=== PATIENT | female | born 1970 | race African-American/Black ===

== ENCOUNTER 2016-08-05 13:41 | Emergency (ER) | payer BC ==
[~2016-08-05] VITALS: Ht 167.6 cm; Wt 74.0 kg
[~2016-08-05 13:41] MED LIST: AZEL23SP NS; CEFU250S PO; CHLO25TA PO; CYCL-331 PO; DOCU-109 PO; GABA-586 PO; HYDR-2758 PO; HYDR2TAB31 PO; NAPR500T3 PO; POTA10CA PO; SITA1TBM7 PO
--- NOTE | 2016-08-05 14:12 | PHYS DOC ---
General Chief Complaint: Neck Pain Stated Complaint: ABNORMAL EKG Time Seen by MD: 14:06 Source: patient, other (office visit notes from this morning's outpatient visit ) Exam Limitations: no limitations Problems: History of Present Illness Initial Comments Patient is a 46-year-old female with history of diabetes and chronic back and neck pains sent to the emergency department by physician kindergarten teacher assistant Mattie Peter of Dr. Zheng's office with left-sided neck pain to rule out DE. Patient states that she's had left-sided neck discomfort which radiates to her left ear and anterior neck for the past 2 weeks. She says the discomfort is worse when she turns her head to the left and at night. She denies any injury she denies any arm or neck symptoms as well as no chest pain trouble breathing diaphoresis nausea vomiting. She has history of high blood pressure and tachycardia she's been referred to [facility]ology [facility] in the past but she did not follow-up. She does take prednisone as needed for her chronic neck and back pains and says her sugars have been slightly elevated recently from those medications. She is also complaining of hoarseness intermittently but denies sore throat or dysphagia. She's had no workup for her tachycardia in the past, she does have history of thyroid nodules and goiter. The tachycardia has been present for nearly a year according to the patient, and further discussion reveals that she's had heat intolerance mild weight loss and mild loose stools coinciding with the onset of her tachycardia. In the emergency department she has no discomfort while at rest she says her symptoms are only present when moving her neck and primarily rotating her head to the left. Patient has pending referrals to ENT for the hoarseness as well as plastics for lower lip lesion. Emergency department vitals: 98.1, 117, 16, 164/63, 98% RA Timing/Duration: constant (almost a year), other Severity: moderate Modifying Factors: improves with other Associated Symptoms: other Allergies: Coded Allergies: spironolactone (Verified Allergy, Intermediate, Hives, 01/29/16) tramadol (Verified Allergy, Intermediate, Hives, 01/29/16) Past Medical History Medical History: other (hypertension, thyroid nodules, goiter, diabetes, irritable bowel syndrome, chronic back and neck pain, chronic narcotic pain medication, TIA ) Surgical History: appendectomy, cholecystectomy (hysterectomy), other (total hysterectomy, lumbar fusion 2014, unspecified back surgery 2013) Family History Significant Family History: other (patient is unclear, she says her sister has heart issues and may require a defibrillator but is uncertain if she's had myocardial infarction past.) Social History Smoker: non-smoker Alcohol: none Drugs: none Review of Systems Constitutional: denies chills, denies diaphoresis, denies fever, denies malaise , denies weakness EENTM: see HPI, denies eye pain, denies blurred vision, ear pain, denies ear discharge, denies nose pain, denies nose congestion Respiratory: denies cough, denies shortness of breath, denies wheezing Cardiovascular: denies chest pain, denies edema, denies palpitations, denies syncope Gastrointestinal: denies abdominal pain, denies constipation, diarrhea, denies nausea, denies vomiting Genitourinary: denies dysuria, denies frequency, denies hematuria Musculoskeletal: see HPI Psychiatric/Neurological: denies headache, denies numbness, denies paresthesia , denies seizure, denies weakness Hematologic/Lymphatic: denies blood clots, denies easy bleeding, denies easy bruising Physical Exam General Appearance: WD/WN, mild distress Eyes: bilateral eye normal inspection, bilateral eye PERRL, bilateral eye EOMI , bilateral eye other (no obvious exophthalmos noted) Ear, Nose, Throat: hearing grossly normal, normal ENT inspection, normal pharynx Neck: supple (left sided sternocleidomastoid and scalene hypertonicity with tenderness to palpation, mildly decreased head rotation to the left, small left- sided thyroid nodule noted no bony tenderness or lymphadenopathy noted trachea is midline) Respiratory: normal breath sounds, no respiratory distress Cardiovascular: normal peripheral pulses, tachycardia Gastrointestinal: normal bowel sounds, non tender, soft Back: no CVA tenderness, no vertebral tenderness Extremities: normal range of motion, non-tender, normal inspection Neurologic/Psychiatric: valver II-XII nml as tested, no motor/sensory deficits, alert, normal mood/affect, oriented x 3 Skin: normal color, warm/dry Orders, Labs, Meds EKG: Sinus tachycardia 110 bpm no acute ischemic changes noted no STEMI interpreted by me. Chest x-ray PA and lateral: No acute cardiopulmonary process noted, interpreted by me. Labs reassuring TSH is pending. Results discussed with the patient and her questions were answered. She expressed agreement and understanding of the treatment plan. Departure Time of Disposition: 16:23 Disposition: 01 HOME, SELF-CARE Diagnosis: multinodular goiter, torticollis, tachycardia/hype Condition: STABLE Patient Instructions: Thyroid-Stimulating Hormone, Torticollis, Acute Additional Instructions: As discussed, your constellation of symptoms: thyroid nodules, tachycardia, hypertension, heat intolerance, and loose stools may be due in part to hyperthyroidism. Left sided sternocleidomastoid muscle spasm may be resultant from local irritation of thyroid nodule. The thyroid blood test result will be available in 2-3 days. Rest, no strenuous activity. Continue current meds. Follow up with ENT and plastics as already planned. Follow up with Mattie Peter next week for recheck, thyroid test results, further evaluation and treatment. Return to ED with new or changing symptoms. YVONNE LOPEZ DO Aug 05, 2016 14:12
[2016-08-05] MEDS ORDERED: ASPIRIN 81 MG TAB.CHEW PO ONE (14:15)
[2016-08-05 14:35] LABS: BASO % 1 % (0-3); EOS # 0.1 x10^3/uL (0.0-0.7); EOS % 2 % (0-3); HEMATOCRIT 36.9 % (36.0-47.0); HEMOGLOBIN 12.5 g/dL (12.0-15.5); LYMPH # 1.5 x10^3/uL (1.0-4.8); LYMPH % 40 % (24-48); MEAN CORPUSCULAR HEMOGLOBIN 29 pg (25-35); MEAN CORPUSCULAR HGB CONC 34 g/dL (31-37); MEAN CORPUSCULAR VOLUME 84 fL (79-100); MONO # 0.3 x10^3/uL (0.0-1.1); MONO % 7 % (0-9); NEUT # 1.9 x10^3uL (1.8-7.7); NEUT % 50 % (31-73); PLATELET COUNT 234 x10^3/uL (140-400); RED BLOOD COUNT 4.37 x10^6/uL (3.50-5.40); RED CELL DISTRIBUTION WIDTH 14.8 % (11.5-14.5); WHITE BLOOD COUNT 3.8 x10^3/uL (4.0-11.0)
--- NOTE | 2016-08-05 14:42 | RAD ---
Indication: Abnormal EKG. Time of exam 1427 hours. Correlation is made with prior chest from 01/29/2016. FINDINGS: The heart size is normal. The lungs are clear. No pleural effusion or pneumothorax is identified. The pulmonary vascularity is normal. IMPRESSION: No acute abnormality detected.
[2016-08-05] MEDS ORDERED: NITROGLYCERIN OINT 1 GM PACKET. TP ONE (14:45)
--- NOTE | 2016-08-05 14:45 | EKG ---
[address] [address] Test Date: 2016-08-05 Test Time: 13:58:53 Pat Name: RICK LEES Department: Room: Gender: F Employment Law Specialist: : 1970 Requested By: YVONNE LOPEZ Order Number: [id number] Reading MD: Measurements Intervals [place] Rate: 110 P: 42 MO: 120 QRS: 33 QRSD: 84 T: 23 QT: 336 QTc: 460 Interpretive Statements SINUS TACHYCARDIA OTHERWISE NORMAL ECG RI6.01 Unconfirmed report No previous ECG available for comparison
[2016-08-05 14:55] LABS: ALBUMIN 3.9 g/dL (3.4-5.0); CALCIUM 9.5 mg/dL (8.5-10.1); CREATININE 0.6 mg/dL (0.6-1.0); GFR 129.1; MAGNESIUM 1.8 mg/dL (1.8-2.4); POTASSIUM 3.5 mmol/L (3.5-5.1); TOTAL BILIRUBIN 0.3 mg/dL (0.2-1.0); TOTAL PROTEIN 7.9 g/dL (6.4-8.2)
[2016-08-05] MEDS: MORPHINE SULFATE 4 MG/ML DISP.SYRIN. IV/SQ PRN ×2 (15:13→15:57)
[2016-08-05] MEDS ORDERED: IV NORMAL SALINE 1,000ML 1,000 ML IV SCH (16:10)
--- NOTE | 2016-08-05 16:14 | RAD ---
THYROID SONOGRAPHY History: Neck pain and hoarseness. Findings: The longitudinal and AP and transverse dimensions of the right lobe of the thyroid gland are 5.4 cm and 1.9 cm and 2.1 cm respectively. The longitudinal and AP and transverse dimensions of the left lobe are 6.3 cm and 1.7 cm and 2.1 cm respectively. Multiple numerous nodules are seen bilaterally consistent with multinodular goiter. This includes the isthmus which measures 0.3 cm in thickness. Largest nodule on the left side is a cyst measuring 15 mm. Largest nodule on the right side is a complex cystic nodule measuring 19 mm. Multiple echogenic foci with shine down is seen consistent with colloid cysts. IMPRESSION: Enlarged thyroid gland. Multinodular goiter.
[2016-08-05 17:00] VITALS: BP 132/66
== END 2016-08-05 17:15 | disposition home or self-care (01) ==
LOC: ER 13:41
DX: E04.2 Nontoxic multinodular goiter (principal); M43.6 Torticollis; R00.0 Tachycardia, unspecified; E11.9 Type 2 diabetes mellitus without complications; I10 Essential (primary) hypertension; K58.9 Irritable bowel syndrome, unspecified; G89.29 Other chronic pain; Z86.73 Personal history of transient ischemic attack (TIA), and cerebral infarction without residual deficits; Z88.6 Allergy status to analgesic agent; Z88.8 Allergy status to other drugs, medicaments and biological substances
CPT/HCPCS: 36415; 71020; 76536; 80053; 82550; 83735; 83880; 84443; 84484; 85027; 85379; 85610; 85730; 93005; 96361; 96374; 96376; 99285; J2270; J7030

== ENCOUNTER 2016-09-10 01:58 | Observation (INO) | payer OTHER ==
[~2016-09-10] VITALS: Ht 167.6 cm; Wt 76.8 kg
--- NOTE | 2016-09-10 02:06 | PHYS DOC ---
General Chief Complaint: high blood pressure Stated Complaint: HIGH BLOOD PRESSURE Time Seen by MD: 02:05 Source: patient Exam Limitations: no limitations Problems: History of Present Illness Initial Comments Patient is a 46-year-old female with history of diabetes and hypertension who comes to the emergency department complaining of hypertension and jaw pain. Patient states that she's been under a great deal of stress the past several weeks. Her dad was diagnosed with prostate cancer 2 weeks ago and she has been in and out of the hospital and various doctors offices with him trying to get him treated. Patient says that she has history of hypertension in the past she used to take 8 medications to control her blood pressures. She says that she was taken off of her antihypertensive medications as her blood pressures normalized and she hasn't had issues with that since. Patient states that she first felt ill when she awoke yesterday with a mild headache and jaw/neck achiness. Those symptoms smoldered throughout the day until 10 PM last night. She says that she went to product picker some medications for her father and arrived back home about 10 PM at which point she noticed that her jaw symptoms had worsened and she was nauseous. She denies chest pain diaphoresis or difficulty breathing. Patient says that she did take a metoprolol and a 20 mg lisinopril yesterday evening at home as she felt her symptoms were likely from elevated blood pressures. Patient states that has been a while since she's been to her doctor but she follows with Dr Zheng's office. ED vitals: 98.2, 96, 20, 187/120, 98% room air Timing/Duration: 24 hours Severity: moderate Modifying Factors: improves with medication, improves with rest Associated Symptoms: headaches, malaise, nausea/vomiting Allergies: Coded Allergies: spironolactone (Verified Allergy, Intermediate, Hives, 01/29/16) tramadol (Verified Allergy, Intermediate, Hives, 01/29/16) Past Medical History Medical History: other (chronic back pain, diabetes, hypertension, TIA) Surgical History: appendectomy, cholecystectomy, other (hysterectomy, L1 and 2 fusion) Family History Significant Family History: other Social History Smoker: non-smoker Alcohol: none Drugs: none Review of Systems Constitutional: denies chills, denies diaphoresis, denies fever, malaise EENTM: see HPI Respiratory: denies cough, denies shortness of breath, denies wheezing Cardiovascular: denies chest pain, denies palpitations, denies syncope Gastrointestinal: denies abdominal pain, denies diarrhea, nausea, denies vomiting Genitourinary: denies dysuria, denies frequency, denies hematuria Musculoskeletal: see HPI Psychiatric/Neurological: denies headache, denies numbness, denies paresthesia , denies weakness Hematologic/Lymphatic: denies blood clots, denies easy bleeding, denies easy bruising Physical Exam General Appearance: WD/WN, no apparent distress Eyes: bilateral eye normal inspection, bilateral eye PERRL, bilateral eye EOMI Ear, Nose, Throat: hearing grossly normal, normal ENT inspection Neck: non-tender, supple Respiratory: normal breath sounds, no respiratory distress Cardiovascular: normal peripheral pulses, regular rate, rhythm Gastrointestinal: non tender, soft Back: no CVA tenderness, no vertebral tenderness Extremities: non-tender, normal inspection 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 Interpreted by Dr. Lopez. ED workup is reassuring. 0431: I discussed findings with the patient. Upon recheck she states that nearly all of her symptoms have resolved, current blood pressure is 140s over 80s. Although her presenting symptoms were likely due to her untreated malignant hypertension with her risk factors or symptoms were also a chest pain equivalent. The patient is agreeable to inpatient observation admission. I discussed this with Dr. Zheng who accepts telemetry observation admission to follow serial cardiac enzymes and consult cardiology. Departure Time of Disposition: 04:33 Disposition: 09 ADMITTED INPATIENT Diagnosis: chest pain, malignant hypertension, diabetes Condition: IMPROVED Additional Instructions: Telemetry observation admission Dr. Zheng is accepting. YVONNE LOPEZ DO Sep 10, 2016 02:06
[2016-09-10] MEDS: MORPHINE SULFATE 2 MG/ML DISP.SYRIN. IV/SQ PRN ×2 (02:53→04:02)
[2016-09-10] MEDS ORDERED: ASPIRIN 81 MG TAB.CHEW PO ONE (03:00)
[2016-09-10] MEDS ORDERED: METOPROLOL TARTRATE 5 MG/5 ML VIAL. IV ONE (03:00)
[2016-09-10] MEDS ORDERED: ONDANSETRON PF 4 MG/2 ML VIAL. IV ONE (03:00)
[2016-09-10 03:10] LABS: BASO # 0.1 x10^3/uL (0.0-0.2); BASO % 1 % (0-3); EOS # 0.1 x10^3/uL (0.0-0.7); EOS % 3 % (0-3); HEMATOCRIT 34.9 % (36.0-47.0); LYMPH % 39 % (24-48); MEAN CORPUSCULAR HEMOGLOBIN 29 pg (25-35); MEAN CORPUSCULAR HGB CONC 34 g/dL (31-37); MEAN CORPUSCULAR VOLUME 85 fL (79-100); MONO # 0.3 x10^3/uL (0.0-1.1); MONO % 7 % (0-9); NEUT # 2.5 x10^3uL (1.8-7.7); NEUT % 50 % (31-73); PLATELET COUNT 232 x10^3/uL (140-400); RED BLOOD COUNT 4.13 x10^6/uL (3.50-5.40); RED CELL DISTRIBUTION WIDTH 14.4 % (11.5-14.5); WHITE BLOOD COUNT 5.1 x10^3/uL (4.0-11.0)
[2016-09-10 03:37] LABS: ALBUMIN 3.6 g/dL (3.4-5.0); ALBUMIN/GLOBULIN RATIO 0.9 (1.0-1.7); CALCIUM 9.2 mg/dL (8.5-10.1); CREATININE 0.7 mg/dL (0.6-1.0); GFR 108.1; POTASSIUM 3.6 mmol/L (3.5-5.1); TOTAL BILIRUBIN 0.3 mg/dL (0.2-1.0); TOTAL PROTEIN 7.4 g/dL (6.4-8.2)
[2016-09-10] MEDS: NITROGLYCERIN SUBLINGUAL 0.4 MG BOTTLE OF 25. SL PRN ×2 (03:43→03:55)
[2016-09-10 04:13] LABS: BARBITURATES NEG (NEG); BENZODIAZEPINES NEG (NEG); CANNABINOIDS NEG (NEG); COCAINE NEG (NEG); METHADONE NEG (NEG); OPIATES POS (NEG); PHENCYCLIDINE NEG (NEG)
[2016-09-10 04:15] LABS: AMPHETAMINE/METHAMPHETAMINE NEG (NEG)
[2016-09-10] MEDS ORDERED: ONDANSETRON PF 4 MG/2 ML VIAL. IV PRN (04:45)
[2016-09-10] MEDS ORDERED: ACETAMINOPHEN 325 MG TABLET PO PRN (04:45)
[2016-09-10 05:24] VITALS: BP 154/101
[2016-09-10 05:25] VITALS: BP 154/101
[2016-09-10] MEDS ORDERED: HYDR2TAB (05:49)
[2016-09-10] MEDS ORDERED: GABA300C8 (05:49)
[2016-09-10] MEDS ORDERED: METO25TA4 (05:49)
[2016-09-10] MEDS ORDERED: HYDR25TA9 (05:49)
[2016-09-10] MEDS ORDERED: METF10002 (05:49)
[2016-09-10 06:11] VITALS: BP 144/88
--- NOTE | 2016-09-10 06:22 | EKG ---
[address] [address] Test Date: 2016-09-10 Test Time: 02:27:19 Pat Name: RICK LEES Department: Room: 113 A Gender: F Biomedical Engineer: : 1970 Requested By: YVONNE LOPEZ Order Number: [id number] Reading MD: Kevin Santana Measurements Intervals [place] Rate: 100 P: 39 SD: 128 QRS: 32 QRSD: 86 T: 26 QT: 366 QTc: 475 Interpretive Statements SINUS RHYTHM PROLONGED QT NONSPECIFIC ST-T WAVE CHANGES. RI6.01 Unconfirmed report Electronically Signed On 09-19-2016 8:55:36 CDT by Kevin Santana
--- NOTE | 2016-09-10 08:20 | RAD ---
Indication chest pain. A single view of the chest was obtained and is compared to an examination just over one month earlier. The heart, pulmonary vessels and mediastinum appear within normal limits. The level of inspiratory effort is not quite as good as on the previous exam. Acute or focal process is not seen. There is no pleural fluid or pneumothorax. A significant change when compared to the previous exam is not seen. IMPRESSION: No acute or focal process. No definite significant change
[2016-09-10 10:05] VITALS: BP 135/95
[2016-09-10] MEDS ORDERED: AMLO5TAB4 PO (10:12)
[2016-09-10] MEDS ORDERED: CYCLOBENZAPRINE 10 MG TABLET. PO PRN (10:15)
[2016-09-10] MEDS ORDERED: HYDROmorphone 2 MG TABLET PO PRN (10:15)
[2016-09-10] MEDS ORDERED: GABAPENTIN 300 MG CAPSULE. PO PRN (10:15)
[2016-09-10 10:30] VITALS: BP 135/95
[2016-09-10] MEDS ORDERED: LINAGLIPTIN 5 MG TABLET PO SCH (10:30)
[2016-09-10] MEDS ORDERED: GABAPENTIN 300 MG CAPSULE. PO SCH (10:30)
[2016-09-10] MEDS ORDERED: hydroCHLOROthiazide 25 MG TABLET PO SCH (10:30)
[2016-09-10] MEDS ORDERED: FLUTICASONE 50MCG/NASAL SPRAY 16GM BOTTLE. NS SCH (10:30)
[2016-09-10] MEDS ORDERED: AZELASTINE NASAL SPRAY 30ML BOTTLE. NS SCH (10:30)
[2016-09-10] MEDS ORDERED: metFORMIN XR 500 MG TAB.ER.24H PO SCH (10:30)
[2016-09-10] MEDS ORDERED: POTASSIUM CHLORIDE 20 MEQ TABLET.ER. PO SCH (10:30)
[2016-09-10] MEDS ORDERED: METOPROLOL TART IMMED RELEASE 25 MG TABLET PO SCH (10:30)
[2016-09-10] MEDS ORDERED: CEFUROXIME AXETIL 250 MG PO SCH (21:00)
[2016-09-10] MEDS ORDERED: AZELASTINE NS SCH (21:00)
[2016-09-10] MEDS ORDERED: FLUTICASONE NS SCH (21:00)
[2016-09-11] MEDS ORDERED: METFORMIN HCL PO SCH (09:00)
[2016-09-11] MEDS ORDERED: SITAGLIPTIN PHOS PO SCH (09:00)
[2016-09-11] MEDS ORDERED: [UNRECOGNIZED DRUG - OTHER] PO SCH (09:00)
[2016-09-12] MEDS ORDERED: CHLORTHALIDONE 25 MG TABLET PO SCH (09:00)
== END 2016-09-10 10:55 | disposition home or self-care (01) ==
LOC: ER 01:58 → 1 SOUTH 04:36 → ER 05:00
PROVIDERS: ADMIT Family Medicine; ATTEND Family Medicine
DX: R07.9 Chest pain, unspecified (principal); I10 Essential (primary) hypertension; E11.9 Type 2 diabetes mellitus without complications; G89.29 Other chronic pain; Z90.89 Acquired absence of other organs; Z90.710 Acquired absence of both cervix and uterus; Z90.49 Acquired absence of other specified parts of digestive tract; Z86.73 Personal history of transient ischemic attack (TIA), and cerebral infarction without residual deficits
CPT/HCPCS: 36415; 71010; 80053; 80307; 82550; 82947; 83880; 84484; 85027; 93005; 96374; 96375; 96376; G0378; G0379; J2270; J2405; J3490; 99285-25; G0479

== ENCOUNTER 2017-03-16 18:14 | Emergency (ER) | payer OTHER ==
[~2017-03-16] VITALS: Ht 167.6 cm; Wt 70.3 kg
[~2017-03-16 18:14] MED LIST changes: +AMLO5TAB4 PO; +GABA300C8; +HYDR25TA9; +HYDR2TAB; +METF10002; +METO25TA4; -NAPR500T3 PO; +NAPR500T4 PO
--- NOTE | 2017-03-16 18:40 | ED.ADGEN ---
Past History Past Medical History: Diabetes, Hypertension, TIA Past Surgical History: Appendectomy, Cholecystectomy, Hysterectomy Alcohol Use: None Drug Use: None Adult General Chief Complaint Chief Complaint " I have chronic back pain.. I just left my ( [place]). office.. and came down here because they could not do anything for me...".. " I had back surgery back in [address] Almanzar..." [facility] HPI Patient is a 47 year old female who presents with above hx and complaints of back pain. Patient localizes pain primarily on right currently. Pain does seem to radiate into sciatic nerve on right. Previous history of back surgery was for left sciatica. Patient denies any history of recent fall or trauma. Patient previously has been admitted for back pain at [facility]. A shunt has had CTs and MRIs for evaluation of her back pain. Patient does occasionally have episodes of constipation but is on Dilaudid, gabapentin and Flexeril. No history of fevers. No history immunosuppression. No history of cancer. No history of IV drug use. No history of urinary incontinence or problems with defecation currently. Options for evaluation discussed with patient and she elected to be treated clinically and she will follow-up with neurosurgery in her primary. Patient also to follow-up Dr. Solano who has previously treated her chronic pain with injections of steroids. Review of Systems Review of Systems Constitutional: Denies fever or chills [] Eyes: Denies change in visual acuity, redness, or eye pain [] HENT: Denies nasal congestion or sore throat [] Respiratory: Denies cough or shortness of breath [] Cardiovascular: No additional information not addressed in HPI [] GI: Denies abdominal pain, nausea, vomiting, bloody stools or diarrhea [] : Denies dysuria or hematuria [] Musculoskeletal: Complains of back pain . Integument: Denies rash or skin lesions [] Neurologic: Denies headache, focal weakness or sensory changes [] Endocrine: Denies polyuria or polydipsia [] All other systems were reviewed and found to be within normal limits, except as documented in this note. Family History Family History Noncontributory Current Medications Current Medications Current Medications Medications (Trade) Dose Ordered Sig/Samara Start Time Stop Time Status Last Admin Dose Admin Ketorolac Tromethamine (Toradol) 60 mg 1X ONCE 2/8/18 19:45 03/16/17 19:46 DC 03/16/17 19:42 60 MG Lorazepam (Ativan) 2 mg 1X ONCE 03/16/17 19:45 03/16/17 19:46 DC 03/16/17 19:41 2 MG Methylprednisolone Acetate (DEPO-Medrol IM) 40 mg 1X ONCE 03/16/17 19:45 03/16/17 19:46 DC 03/16/17 19:43 40 MG Morphine Sulfate (Morphine 10mg Syringe) 10 mg 1X ONCE 03/16/17 19:45 03/16/17 19:46 DC 03/16/17 19:48 10 MG Orphenadrine Citrate (Norflex) 60 mg 1X ONCE 03/16/17 19:45 03/16/17 19:46 DC 03/16/17 19:47 60 MG Allergies Allergies Allergies Coded Allergies Type Severity Reaction Last Updated Verified spironolactone Allergy Intermediate Hives 01/29/16 Yes tramadol Allergy Intermediate Hives 01/29/16 Yes Physical Exam Physical Exam Constitutional: Well developed, well nourished, moderately acute distress, non- toxic appearance. [] HENT: Normocephalic, atraumatic, bilateral external ears normal, oropharynx moist, no oral exudates, nose normal. [] Eyes: PERRLA, EOMI, conjunctiva normal, no discharge. [] Neck: Normal range of motion, no tenderness, supple, no stridor. [] Cardiovascular:Heart rate regular rhythm, no murmur [] Lungs & Thorax: Bilateral breath sounds clear to auscultation [] Abdomen: Bowel sounds normal, soft, no tenderness, no masses, no pulsatile masses. [] No saddle loss reported. Old surgery scars. Skin: Warm, dry, no erythema, no rash. [] Back: Lumbar sacral tenderness,old surgery scars, no CVA tenderness. [] Extremities: No tenderness, no cyanosis, no clubbing, ROM intact, no edema. [] DTRs are +2 patella and ankle Neurologic: Alert and oriented X 3, no gross motor function deficits, as well as noted to have guarded gait, no gross sensory function loss, no focal deficits noted. [] Psychologic: Affect normal, judgement normal, mood normal. [] Current Patient Data Vital Signs Vital Signs Date Time Temp Pulse Resp B/P (MAP) Pulse Ox O2 Delivery O2 Flow Rate FiO2 03/16/17 19:50 98.9 89 24 148/91 (110) 99 Room Air EKG EKG [] Radiology/Procedures Radiology/Procedures [] Course & Med Decision Making Course & Med Decision Making Pertinent Labs and Imaging studies reviewed. (See chart for details). Patient take meds as directed. Patient to follow-up with Dr. Almanzar and Dr. Solano. Patient follow-up primary care. Patient take her home pain meds as previous directed. [] Final Impression Final Impression 1. Acute on Chronic Back Pain[] Problems: Dragon Disclaimer Dragon Disclaimer This electronic medical record was generated, in whole or in part, using a voice recognition dictation system. ARIELLE ARRIOLA MD Mar 16, 2017 18:40
[2017-03-16] MEDS ORDERED: methylPREDNISolone ACETATE 40 MG/ML VIAL. IM ONE (19:45)
[2017-03-16] MEDS ORDERED: KETOROLAC 60 MG/2 ML VIAL. IM ONE (19:45)
[2017-03-16] MEDS ORDERED: LORazepam 1 MG TABLET PO ONE (19:45)
[2017-03-16] MEDS ORDERED: MORPHINE SULFATE 10 MG/ML SYRINGE. SQ ONE (19:45)
[2017-03-16] MEDS ORDERED: ORPHENADRINE CITRATE 60 MG/2 ML VIAL. IM ONE (19:45)
[2017-03-16 19:50] VITALS: BP 148/91
== END 2017-03-16 19:53 | disposition home or self-care (01) ==
LOC: ER 18:14
DX: G89.29 Other chronic pain (principal); M54.89 Other dorsalgia; E11.9 Type 2 diabetes mellitus without complications; I10 Essential (primary) hypertension; Z86.73 Personal history of transient ischemic attack (TIA), and cerebral infarction without residual deficits; Z88.6 Allergy status to analgesic agent; Z88.8 Allergy status to other drugs, medicaments and biological substances
CPT/HCPCS: 96372; 99284; J1030; J1885; J2270; J2360

== ENCOUNTER 2017-12-04 19:27 | Emergency (ER) | payer OTHER ==
[~2017-12-04] VITALS: Ht 167.6 cm; Wt 70.3 kg
[~2017-12-04 19:27] MED LIST changes: -METF10002; +METF10007; +NAPR-514 PO; -NAPR500T4 PO
[2017-12-04 19:38] VITALS: BP 166/98
--- NOTE | 2017-12-04 19:38 | ED.ADGEN ---
Past History Past Medical History: Diabetes, Hypertension, TIA, Other Past Surgical History: Appendectomy, Cholecystectomy, Hysterectomy Alcohol Use: None Drug Use: None Adult General Chief Complaint Chief Complaint ".. I got bad back pain...again.. I seen Dr. Almanzar ".." He trying to get me into a pain center... Surgery is on hold for insurance...." HPI HPI Patient is a 47 year old female who presents with above hx and complaints of back pain. Pt. has hx of chronic back pain and has recent exacerbation to night. Pt. has had previous back surgery 2013, 2015. Pt. denies fever or chills. No hx of immunosuppression. No hx of cancer. No hx IV drug use. Pt. denies problems with defecation or urination. Pt. follows with Dr. Almanzar for her neurosurgery. Review of Systems Review of Systems Constitutional: Denies fever or chills [] Eyes: Denies change in visual acuity, redness, or eye pain [] HENT: Denies nasal congestion or sore throat [] Respiratory: Denies cough or shortness of breath [] Cardiovascular: No additional information not addressed in HPI [] GI: Denies abdominal pain, nausea, vomiting, bloody stools or diarrhea [] : Denies dysuria or hematuria [] Musculoskeletal: complaints back pain and joint pain [] Integument: Denies rash or skin lesions [] Neurologic: Denies headache, focal weakness or sensory changes [] Endocrine: Denies polyuria or polydipsia [] All other systems were reviewed and found to be within normal limits, except as documented in this note. Family History Family History Non-contributory Current Medications Current Medications Current Medications Medications (Trade) Dose Ordered Sig/Samara Start Time Stop Time Status Last Admin Dose Admin Ketorolac Tromethamine (Toradol Im) 60 mg 1X ONCE 12/04/17 20:00 12/04/17 20:01 DC 12/04/17 20:05 60 MG Methylprednisolone Acetate (DEPO-Medrol IM) 40 mg 1X ONCE 12/04/17 20:00 12/04/17 20:01 DC 12/04/17 20:04 40 MG Morphine Sulfate (Morphine 10mg Syringe) 10 mg 1X ONCE 12/04/17 20:00 12/04/17 20:01 DC 12/04/17 20:04 10 MG Orphenadrine Citrate (Norflex) 60 mg 1X ONCE 12/04/17 20:00 12/04/17 20:01 DC 12/04/17 20:05 60 MG Allergies Allergies Allergies Coded Allergies Type Severity Reaction Last Updated Verified spironolactone Allergy Intermediate Hives 01/29/16 Yes tramadol Allergy Intermediate Hives 01/29/16 Yes Physical Exam Physical Exam Constitutional: Moderately acute distress, non-toxic appearance. [] HENT: Normocephalic, atraumatic, bilateral external ears normal, oropharynx moist, no oral exudates, nose normal. [] Eyes: PERRLA, EOMI, conjunctiva normal, no discharge. [] Neck: Normal range of motion, no tenderness, supple, no stridor. [] Cardiovascular:Heart rate regular rhythm, no murmur [] Lungs & Thorax: Bilateral breath sounds clear to auscultation [] Abdomen: Bowel sounds normal, soft, no tenderness, no masses, no pulsatile masses. [] No saddle loss. Old scars. Skin: Warm, dry, no erythema, no rash. [] Back: No tenderness, no CVA tenderness. [] Muscle spasms lumbar area. Old surgery scars. Extremities: No tenderness, no cyanosis, no clubbing, ROM intact, no edema. [] Increase pain in back with straight leg lifts. Neurologic: Alert and oriented X 3, normal motor function, normal sensory function, no focal deficits noted. []DTR + 2 patella and ankle. Psychologic: Affect anxious, judgement normal, mood normal. [] Current Patient Data Vital Signs Vital Signs Date Time Temp Pulse Resp B/P (MAP) Pulse Ox O2 Delivery O2 Flow Rate FiO2 12/04/17 20:04 20 99 12/04/17 19:38 98.1 100 Room Air EKG EKG [] Radiology/Procedures Radiology/Procedures [] Course & Med Decision Making Course & Med Decision Making Pertinent Labs and Imaging studies reviewed. (See chart for details) Pt to keep follow up with Dr. Almanzar and Pain center. Ice packs as needed. Tylenol and Ibuprofen for pain. Flexeril 10 up 3 x day for spasms. Vicoprofen up 4 x day for marked pain. [] Final Impression Final Impression 1. Acute on Chronic Back Pain[] Dragon Disclaimer Dragon Disclaimer This electronic medical record was generated, in whole or in part, using a voice recognition dictation system. ARIELLE ARRIOLA MD Dec 04, 2017 19:38
[2017-12-04] MEDS ORDERED: HYDR-79 PO (19:49)
[2017-12-04] MEDS ORDERED: CYCL-331 PO (19:49)
[2017-12-04] MEDS ORDERED: MORPHINE SULFATE 10 MG/ML SYRINGE. SQ ONE (20:00)
[2017-12-04] MEDS ORDERED: KETOROLAC 60 MG/2 ML VIAL. IM ONE (20:00)
[2017-12-04] MEDS ORDERED: methylPREDNISolone ACETATE 40 MG/ML VIAL. IM ONE (20:00)
[2017-12-04] MEDS ORDERED: ORPHENADRINE CITRATE 60 MG/2 ML VIAL. IM ONE (20:00)
== END 2017-12-04 20:25 | disposition home or self-care (01) ==
LOC: ER 19:27
DX: G89.29 Other chronic pain (principal); M54.5 Low back pain; E11.9 Type 2 diabetes mellitus without complications; I10 Essential (primary) hypertension; Z86.73 Personal history of transient ischemic attack (TIA), and cerebral infarction without residual deficits; Z88.8 Allergy status to other drugs, medicaments and biological substances
CPT/HCPCS: 96372; 99284; J1030; J1885; J2270; J2360

== ENCOUNTER → 2018-09-25 | Outpatient (CLI) | payer OTHER ==
[~2018-09-25] MED LIST changes: -CHLO25TA PO; +CHLO25TA9 PO; +HYDR-1179 PO; +HYDR-2145; +HYDR-2155 PO; -HYDR-2758 PO; -HYDR25TA9
--- NOTE | 2018-09-25 15:24 | RAD ---
EXAM: Abdomen acute complete. HISTORY: Pain. COMPARISON: None. FINDINGS: 2 views of the abdomen are obtained. There is gas and stool within the colon. No abnormally dilated air-filled loop of bowel seen. There are surgical clips within the right upper and lower quadrant. 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 IMPRESSION: Nonobstructive bowel gas pattern. Electronically signed by: Kasandra Echevarria MD (09/25/2018 3:21 PM) [place] [id number]
--- NOTE | 2018-09-25 15:27 | RAD ---
EXAM: Right knee, 2 views. HISTORY: Pain. COMPARISON: None. FINDINGS: 2 views the right knee are obtained. There is no fracture, dislocation or subluxation. There is no joint effusion. IMPRESSION: No acute osseous finding. Electronically signed by: Kasandra Echevarria MD (09/25/2018 3:24 PM) [id number]
== END | disposition home or self-care (01) ==
LOC: PMG 14:36
PROVIDERS: ATTEND Physician Assistant
DX: M79.604 Pain in right leg (principal); R10.13 Epigastric pain
CPT/HCPCS: 73560; 74019

== ENCOUNTER → 2018-10-16 | Outpatient (CLI) | payer OTHER ==
[~2018-10-16] MED LIST changes: +CONTRAST GIVEN MC PRN; +IOHEXOL 240 MG/ML 50ML VIAL. ONE; +IOHEXOL 300 MG/ML 75 ML VIAL. IV ONE
--- NOTE | 2018-10-16 13:02 | RAD ---
CT ABD PELV W/ORAL IV CONTRAST Indication: Elevated liver enzymes, epigastric pain Technique: Postcontrast CT imaging was performed of the abdomen pelvis, multiplanar reconstruction images submitted. Oral contrast was also given. One or more of the following individualized dose reduction techniques were utilized for this examination: 1. Automated exposure control 2. Adjustment of the mA and/or kV according to patient size 3. Use of iterative reconstruction technique. Comparison: January 29, 2016 chest CTA, no previous postcontrast CT abdomen pelvis exams available Findings: There is no new significant abnormality of the limited visualized lung bases. Not apparent on previous chest CTA, there are innumerable scattered small foci of hypodensity throughout the liver. There are also scattered somewhat round hypodense lesions throughout the spleen. There is again more defined hypodense lesion of the right lobe of liver about 1.3 cm with density measurements of a cyst. There has been cholecystectomy as seen previously. Both kidneys enhance, no hydronephrosis. There is no adrenal nodularity. There is again visualization of the proximal pancreatic duct. There is scattered retained stool in the colon. There are postsurgical changes in the right lower quadrant likely from previous appendectomy. Bowel is not significantly dilated. There is no free fluid or free air. There is posterolateral fusion hardware at L4-3-4, interbody graft at this level although interbody fusion not apparent. There is portal caval node about 0.9 cm short axis dimension fairly similar. IMPRESSION: 1. There are now numerable scattered small hypodense foci of the liver and also foci of the spleen most concerning for metastatic disease, other consideration of sequela of infection with microabscesses in the appropriate clinical setting. 2. There is retained stool variably in the colon. Electronically signed by: Joseph Martinez MD (10/16/2018 12:59 PM) [id number]
== END | disposition home or self-care (01) ==
LOC: CT 10:04
PROVIDERS: ATTEND Physician Assistant
DX: D73.89 Other diseases of spleen (principal); K56.41 Fecal impaction; I10 Essential (primary) hypertension; E11.9 Type 2 diabetes mellitus without complications; Z90.49 Acquired absence of other specified parts of digestive tract
CPT/HCPCS: 74177

== ENCOUNTER 2018-11-11 05:54 | Emergency (ER) | payer OTHER ==
[~2018-11-11] VITALS: Ht 167.6 cm; Wt 74.0 kg
[~2018-11-11 05:54] MED LIST changes: -CONTRAST GIVEN MC PRN; -IOHEXOL 240 MG/ML 50ML VIAL. ONE; -IOHEXOL 300 MG/ML 75 ML VIAL. IV ONE
[2018-11-11] MEDS ORDERED: IV NORMAL SALINE 1,000ML 1,000 ML IV SCH (06:24)
[2018-11-11] MEDS ORDERED: ONDANSETRON PF 4 MG/2 ML VIAL. IV ONE ×2 (06:30→10:45)
[2018-11-11 06:33] LABS: BASO % 1 % (0-3); EOS # 0.2 x10^3/uL (0.0-0.7); EOS % 5 % (0-3); HEMATOCRIT 36.7 % (36.0-47.0); HEMOGLOBIN 12.6 g/dL (12.0-15.5); LYMPH # 1.1 x10^3/uL (1.0-4.8); LYMPH % 27 % (24-48); MEAN CORPUSCULAR HEMOGLOBIN 30 pg (25-35); MEAN CORPUSCULAR HGB CONC 34 g/dL (31-37); MEAN CORPUSCULAR VOLUME 87 fL (79-100); MONO # 0.4 x10^3/uL (0.0-1.1); MONO % 9 % (0-9); NEUT # 2.5 x10^3uL (1.8-7.7); NEUT % 58 % (31-73); PLATELET COUNT 306 x10^3/uL (140-400); RED BLOOD COUNT 4.25 x10^6/uL (3.50-5.40); WHITE BLOOD COUNT 4.2 x10^3/uL (4.0-11.0)
--- NOTE | 2018-11-11 06:35 | PHYS DOC ---
Past History Past Medical History: Diabetes, Hypertension, Other Additional Past Medical Histor: hx of sarcoidosis in family; chronic back pain Past Surgical History: Appendectomy, Cholecystectomy, Hysterectomy, Other Additional Past Surgical Histo: back surgery Smoking: Non-smoker Alcohol Use: None Drug Use: None Adult General Chief Complaint Chief Complaint: ABDOMINAL PAIN HPI HPI Patient is a 48-year-old female presents with right upper abdominal pain. This has been present for the past several weeks. She was initially evaluated by her primary care physician, found to have elevating liver enzymes on serial lab draws, had a CT scan performed that showed liver lesions. On Monday, November 05, 2018 she had a liver biopsy performed at . Since that time the pain has become significantly worse. Zofran that was initially helping with the nausea is no longer as effective. No relief with the narcotic pain medicines she has been prescribed. No diarrhea. No black tarry stools. Pain was initially crampy it is now sharp, waxing and waning. Worse on the car ride to the emergency department. No fever. No recent changes in weight. No cough. Nothing seems to make the discomfort better. Pain is severe. It radiates from the right upper quadrant down to the right lower quadrant.[] Review of Systems Review of Systems Constitutional: Denies fever or chills [] Eyes: Denies change in visual acuity, redness, or eye pain [] HENT: Denies nasal congestion or sore throat [] Respiratory: Denies cough or shortness of breath [] Cardiovascular: No chest pain or palpitations. No worsening of the abdominal pain with exertion.[] GI: See history of present illness[] : Denies dysuria or hematuria [] Musculoskeletal: Denies back pain or joint pain [] Integument: Denies rash or skin lesions [] Neurologic: Denies headache, focal weakness or sensory changes [] Endocrine: Denies polyuria or polydipsia [] All other systems were reviewed and found to be within normal limits, except as documented in this note. Allergies Allergies Allergies Coded Allergies Type Severity Reaction Last Updated Verified spironolactone Allergy Intermediate Hives 11/11/18 Yes tramadol Allergy Intermediate Hives 11/11/18 Yes Physical Exam Physical Exam Constitutional: Well developed, well nourished, no acute distress, non-toxic appearance. [] HENT: Normocephalic, atraumatic, bilateral external ears normal, oropharynx moist, no oral exudates, nose normal. [] Eyes: PERRLA, EOMI, conjunctiva normal, no discharge. [] Neck: Normal range of motion, no tenderness, supple, no stridor. [] Cardiovascular:Heart rate regular rhythm, no murmur [] Lungs & Thorax: Bilateral breath sounds clear to auscultation [] Abdomen: Bowel sounds normal, soft, tenderness in the right upper quadrant region. No signs of infection around the liver biopsy siteno redness or purulent drainage, no masses, no pulsatile masses. [] Skin: Warm, dry, no erythema, no rash. [] Back: No tenderness, no CVA tenderness. [] Extremities: No tenderness, no cyanosis, no clubbing, ROM intact, no edema. [] Neurologic: Alert and oriented X 3, normal motor function, normal sensory function, no focal deficits noted. [] Psychologic: Affect normal, judgement normal, mood normal. [] Current Patient Data Vital Signs Vital Signs Date Time Temp Pulse Resp B/P (MAP) Pulse Ox O2 Delivery O2 Flow Rate FiO2 11/11/18 06:00 99.1 93 28 99 Room Air EKG EKG EKG shows a sinus rhythm at 82 bpm, normal axis, QTC of 440 ms, no ST elevations. Interpreted by me at 0639.[] Radiology/Procedures Radiology/Procedures PROCEDURE: CT ABD PELV W/ORAL&IV CONTRAST PQRS Compliance statement: One or more of the following individualized dose reduction techniques were utilized for this examination: 1. Automated exposure control. 2. Adjustment of the mA and/or kV according to patient size. 3. Use of iterative reconstruction technique. Indication:Right upper quadrant pain, worsening. Liver biopsy recently. TECHNIQUE: CT abdomen and pelvis with IV contrast with multiplanar reformats. COMPARISON: 10/16/2018 FINDINGS: Heart is normal in size. No pericardial or pleural effusion. Clear lung bases. Stable subcapsular low attenuating lesion in segment 7. Numerous too small to characterize low attenuating foci are seen in the liver and spleen. Spleen is unenlarged. Status post cholecystectomy. Pancreas within normal limits. Adrenal glands demonstrate no nodularity. No nephrolithiasis or hydronephrosis. Enlarged right common iliac artery lymph node measuring 1.5 x 1.3 cm. No free pelvic fluid or ascites. No bowel obstruction. Status post appendectomy. Status post hysterectomy. Urinary bladder demonstrates no radiopaque stones. No perihepatic fluid collection. No pneumoperitoneum. No suspicious bony lesion. IMPRESSION: 1. No perihepatic hematoma. 2. Multifocal too small to characterize low attenuating foci in the liver and spleen, indeterminate and may be secondary to infection, metastasis or von Meyenburg complex. Correlate with liver biopsy. 3. Enlarged right common iliac chain lymph node, nonspecific but stable from previous exam.[] Course & Med Decision Making Course & Med Decision Making Pertinent Labs and Imaging studies reviewed. (See chart for details) ED course: Patient arrived, was placed in bed, and tolerated exam well. IV access was established, laboratory testing was drawn, and pain medicines were administered. Multiple doses of parenteral narcotics improved her pain but stronger narcotics were necessary. Patient was able to tolerate oral contrast and was transported to and from [place] with any complications. After the return of the laboratory and imaging findings, these were discussed with patient and family who voiced understanding. Options were presented to the patient to include going home with pain medicine since her laboratory and imaging findings had not significantly changed and there was no evidence of bleeding versus transfer to where the procedure was done and there were GI specialist available. Patient elected to return to for further evaluation and treatment. 1040: Consultation was made with Dr. Nicole who graciously accepted. Medical decision making: Patient with worsening right upper quadrant abdominal pain who has complication of being on oral Dilaudid regularly for chronic back pain. There is no evidence of significant bleeding, infection, acute coronary syndrome, obstruction or perforation. No evidence of significant electrolyte abnormality, no DKA, no coagulopathy from liver dysfunction.[] Dragon Disclaimer Dragon Disclaimer This electronic medical record was generated, in whole or in part, using a voice recognition dictation system. Departure Departure: Impression: Primary Impression: Right upper quadrant abdominal pain Disposition: 05 TRANSFER OTHER Condition: IMPROVED Referrals: SOFIA HENDERSON (PCP) HOLLEY BOLANOS DO Nov 11, 2018 06:35
[2018-11-11] MEDS ORDERED: IOHEXOL 240 MG/ML 50ML VIAL. ONE (06:37)
[2018-11-11 06:41] LABS: BACTERIA,URINE FEW /HPF (0-FEW); BILIRUBIN,URINE NEG (NEG); CLARITY,URINE CLEAR; COLOR,URINE YELLOW; GLUCOSE,URINE NEG (NEG); HYALINE CASTS, URINE OCC /HPF; NITRITE,URINE NEG (NEG); RBC,URINE OCC /HPF (0-2); SQUAMOUS EPITHELIAL CELL,UR OCC /LPF; UROBILINOGEN,URINE 0.2 mg/dL (0.2 mg/dL); WBC,URINE OCC /HPF (0-4)
[2018-11-11 06:46] LABS: CALCIUM 9.7 mg/dL (8.5-10.1); CREATININE 0.7 mg/dL (0.6-1.0); GFR 107.2; POTASSIUM 3.9 mmol/L (3.5-5.1); TOTAL BILIRUBIN 0.5 mg/dL (0.2-1.0); TOTAL PROTEIN 8.1 g/dL (6.4-8.2)
[2018-11-11] MEDS: MORPHINE SULFATE 4 MG/ML DISP.SYRIN. IV/SQ PRN ×3 (06:46→08:47)
--- NOTE | 2018-11-11 06:49 | EKG ---
[address] [address] Test Date: 2018-11-11 Test Time: 06:32:16 Pat Name: RICK LEES Department: Room: Gender: [employer]: : 1970 Requested By: HOLLEY BOLANOS Order Number: [id number] Reading MD: Dany Castaneda MD Measurements Intervals Berger Rate: P: WA: QRS: QRSD: T: QT: QTc: Interpretive Statements SR Electronically Signed On 11-20-2018 9:55:33 CDT by Dany Castaneda MD
[2018-11-11] MEDS ORDERED: IOHEXOL 240 MG/ML 50ML VIAL. PO ONE (07:00)
[2018-11-11] MEDS ORDERED: IOHEXOL 300 MG/ML 75 ML VIAL. IV ONE (07:00)
--- NOTE | 2018-11-11 09:15 | RAD ---
PQRS Compliance statement: One or more of the following individualized dose reduction techniques were utilized for this examination: 1. Automated exposure control. 2. Adjustment of the mA and/or kV according to patient size. 3. Use of iterative reconstruction technique. Indication:Right upper quadrant pain, worsening. Liver biopsy recently. TECHNIQUE: CT abdomen and pelvis with IV contrast with multiplanar reformats. COMPARISON: 10/16/2018 FINDINGS: Heart is normal in size. No pericardial or pleural effusion. Clear lung bases. Stable subcapsular low attenuating lesion in segment 7. Numerous too small to characterize low attenuating foci are seen in the liver and spleen. Spleen is unenlarged. Status post cholecystectomy. Pancreas within normal limits. Adrenal glands demonstrate no nodularity. No nephrolithiasis or hydronephrosis. Enlarged right common iliac artery lymph node measuring 1.5 x 1.3 cm. No free pelvic fluid or ascites. No bowel obstruction. Status post appendectomy. Status post hysterectomy. Urinary bladder demonstrates no radiopaque stones. No perihepatic fluid collection. No pneumoperitoneum. No suspicious bony lesion. IMPRESSION: 1. No perihepatic hematoma. 2. Multifocal too small to characterize low attenuating foci in the liver and spleen, indeterminate and may be secondary to infection, metastasis or von Meyenburg complex. Correlate with liver biopsy. 3. Enlarged right common iliac chain lymph node, nonspecific but stable from previous exam. Electronically signed by: Jairo Nolasco DO (11/11/2018 9:12 AM) [id number]
[2018-11-11] MEDS ORDERED: HYDROmorphone PF 1 MG/ML DISP.SYRIN IV/SQ PRN (10:00)
[2018-11-11] MEDS ORDERED: ONDANSETRON PF 4 MG/2 ML VIAL. ONE (10:45)
[2018-11-11 11:40] VITALS: BP 160/88
== END 2018-11-11 11:43 | disposition short-term general hospital (02) ==
LOC: ER 05:54
DX: R10.11 Right upper quadrant pain (principal); E11.9 Type 2 diabetes mellitus without complications; I10 Essential (primary) hypertension; G89.29 Other chronic pain; M54.89 Other dorsalgia; Z90.89 Acquired absence of other organs; Z90.49 Acquired absence of other specified parts of digestive tract; Z90.710 Acquired absence of both cervix and uterus; Z88.6 Allergy status to analgesic agent; Z88.8 Allergy status to other drugs, medicaments and biological substances
CPT/HCPCS: 36415; 74177; 80053; 81001; 83690; 84484; 85025; 85610; 85730; 93005; 96374; 96375; 96376; 99285; J1170; J2270; J2405; Q9966; Q9967; J7030

== ENCOUNTER → 2019-08-08 | Outpatient (CLI) | payer OTHER ==
--- NOTE | 2019-08-08 11:40 | RAD ---
Examination: ABDOMEN LTD History: Reason: Targeting 2 subcutaneous nodules RUQ; palpable abnormalities of the abdominal wall Comparison/Correlation: 11/11/2018 CT abdomen and pelvis with contrast Findings: Targeted ultrasound examination of the right anterolateral abdominal wall at the level above the umbilicus were obtained. At the site where the palpable abnormalities, there is a moderately hyperechoic structure measuring 1.1 cm transverse by 0.6 cm longitudinal by 0.6 cm anteroposterior. No flow evident within it. At the other site of a palpable abnormality in close proximity to this lesion, no ultrasound findings of a mass or cyst are identified. Impression: Mildly hyperechoic structure within the subcutaneous fat of the right anterolateral abdominal wall. This may represent a lipoma or other probably benign process. No suspicious corresponding finding on the previous CT examination of 11/11/2018. No suspicious finding at the other site of the reported palpable abnormality. Clinical follow-up is recommended. Correlate clinically in determining the need for interval follow-up ultrasound imaging or other imaging to assess stability. Electronically signed by: Angel Florez MD (08/08/2019 11:37 AM) [id number]
== END | disposition home or self-care (01) ==
LOC: US 09:39
PROVIDERS: ATTEND Physician Assistant
DX: R22.2 Localized swelling, mass and lump, trunk (principal)
CPT/HCPCS: 76705

== ENCOUNTER 2020-07-06 14:28 | Emergency (ER) | payer OTHER ==
[~2020-07-06] VITALS: Ht 167.6 cm; Wt 74.0 kg
[2020-07-06] MEDS: IV NORMAL SALINE 1,000ML 1,000 ML IV ONE (15:08)
[2020-07-06] MEDS: KETOROLAC 15 MG/ML VIAL. IVP ONE (15:09)
[2020-07-06 15:20] LABS: BACTERIA,URINE 0 /HPF (0-FEW); BILIRUBIN,URINE NEG (NEG); CLARITY,URINE CLEAR; COLOR,URINE YELLOW; GLUCOSE,URINE NEG (NEG); NITRITE,URINE NEG (NEG); SQUAMOUS EPITHELIAL CELL,UR FEW /LPF; UROBILINOGEN,URINE 0.2 mg/dL (0.2 mg/dL); WBC,URINE 0 /HPF (0-4)
[2020-07-06 15:24] LABS: BASO # 0.1 x10^3/uL (0.0-0.2); BASO % 1 % (0-3); EOS # 0.1 x10^3/uL (0.0-0.7); EOS % 4 % (0-3); HEMATOCRIT 39.5 % (36.0-47.0); HEMOGLOBIN 13.6 g/dL (12.0-15.5); LYMPH # 1.6 x10^3/uL (1.0-4.8); LYMPH % 40 % (24-48); MEAN CORPUSCULAR HEMOGLOBIN 30 pg (25-35); MEAN CORPUSCULAR HGB CONC 34 g/dL (31-37); MEAN CORPUSCULAR VOLUME 88 fL (79-100); MONO # 0.6 x10^3/uL (0.0-1.1); MONO % 16 % (0-9); NEUT # 1.5 x10^3uL (1.8-7.7); NEUT % 39 % (31-73); PLATELET COUNT 293 x10^3/uL (140-400); RED BLOOD COUNT 4.48 x10^6/uL (3.50-5.40); RED CELL DISTRIBUTION WIDTH 13.2 % (11.5-14.5)
[2020-07-06 15:35] LABS: ALBUMIN 4.3 g/dL (3.4-5.0); CALCIUM 9.9 mg/dL (8.5-10.1); CREATININE 0.7 mg/dL (0.6-1.0); GFR 106.3; TOTAL BILIRUBIN 0.7 mg/dL (0.2-1.0); TOTAL PROTEIN 8.4 g/dL (6.4-8.2)
--- NOTE | 2020-07-06 15:39 | RAD ---
CT ABDOMEN+PELVIS WO INDICATION: right flank pain, dysuria EXAM: Noncontrast CT of the abdomen and pelvis. Coronal and sagittal reformatted images were perform ed. PQRS compliance statement: One or more of the following individualized dose reduction techniques were utilized for this examinat ion: 1. Automated exposure control 2. Adjustment of the mA and/or kV according to patient size 3. Use of iterative reconstruction technique COMPARISON: 11/11/2018 FINDINGS: No free air, free fluid, or fluid collection. Lower chest: The visualized lower lungs are aerated. No pleural or pericardial effusion. ABDOMEN: Liver: Stable right hepatic cyst. Noncontrast liver is otherwise homogeneous in attenuation. Gallbladder and biliary: Cholecystectomy. Normal caliber bile ducts. Spleen: Normal spleen. Pancreas: The noncontrast pancreas is homogeneous in attenuation without peripancreatic inflammatory changes. Adrenal glands: Normal adrenal glands. Kidneys and ureters: No opaque urinary calculi. Normal kidneys and ureters. GI tract: The stomach is decompressed and poorly evaluated. Normal caliber small bowel and colon. Marian endectomy. Vascular structures: Normal caliber abdominal aorta. Lymph nodes: No lymphadenopathy in the abdomen or pelvis. PELVIS: Genitourinary system: Urinary bladder is underdistended and demonstrates circumferential wall thicken ing. Hysterectomy. SKELETAL STRUCTURES AND SOFT TISSUES: Degenerative changes of the spine. Posterior instrumentation at L3-4 with interbody spacer IMPRESSION: 1. No hydronephrosis or opaque urinary calculi. 2. Circumferential bladder wall thickening, which could relate to underdistention or potentially cyst itis. 3. Cholecystectomy. Appendectomy. Hysterectomy. Electronically signed by: Joseph Ridley MD (07/06/2020 3:36 PM) [id number]
[2020-07-06 15:48] LABS: POTASSIUM 2.9 mmol/L (3.5-5.1)
[2020-07-06] MEDS: ONDANSETRON PF 4 MG/2 ML VIAL. IVP ONE ×2 (16:17→17:26)
[2020-07-06] MEDS: MORPHINE SULFATE 4 MG/ML DISP.SYRIN. IV ONE ×2 (16:19→17:28)
--- NOTE | 2020-07-06 16:28 | PHYS DOC ---
Past History Past Medical History: Diabetes, Hypertension, Other Additional Past Medical Histor: sarcoidosis Past Surgical History: Appendectomy, Cholecystectomy, , Hysterectomy, Oophorectomy Additional Past Surgical Histo: back surgery Smoking: Non-smoker Alcohol Use: None Drug Use: None General Adult EDM: Chief Complaint: FLANK PAIN HPI: HPI: Patient is a 50-year-old female who presents with urgency and frequency that started 1 week ago. Patient states her symptoms improved and then Monday started having right flank pain. Patient also reports nausea. Patient denies taking anything for pain prior to arrival. Patient denies vaginal discharge or odor. Patient is afebrile. Patient has history of sarcoidosis which is on her liver and spleen. Patient has history of sarcoidosis, hypertension, diabetes. Review of Systems: Review of Systems: Constitutional: Denies fever or chills Eyes: Denies change in visual acuity HENT: Denies nasal congestion or sore throat Respiratory: Denies cough or shortness of breath Cardiovascular: Denies chest pain or edema GI: Right-sided lower abdominal pain, nausea. Denies vomiting, bloody stools or diarrhea : Reports dysuria and frequency Musculoskeletal: Reports right flank pain or joint pain Integument: Denies rash Neurologic: Denies headache, focal weakness or sensory changes Endocrine: Denies polyuria or polydipsia Lymphatic: Denies swollen glands Psychiatric: Denies depression or anxiety Current Medications: Current Meds: Current Medications Medications (Trade) Dose Ordered Sig/Samara Start Time Stop Time Status Last Admin Dose Admin Ketorolac Tromethamine (Toradol 15mg Vial) 15 mg 1X ONCE 07/06/20 15:00 07/06/20 15:07 DC 07/06/20 15:09 15 MG Morphine Sulfate (Morphine 4mg Syringe) 4 mg 1X ONCE 07/06/20 16:00 07/06/20 16:01 UNV Ondansetron HCl (Zofran) 4 mg 1X ONCE 07/06/20 16:00 07/06/20 16:01 UNV Sodium Chloride 1,000 ml @ 1,000 mls/hr 1X ONCE 07/06/20 15:00 07/06/20 15:59 DC 07/06/20 15:08 1,000 MLS/HR Allergies: Allergies: Allergies Coded Allergies Type Severity Reaction Last Updated Verified spironolactone Allergy Intermediate Hives 07/06/20 Yes tramadol Allergy Intermediate Hives 07/06/20 Yes Physical Exam: PE: Constitutional: Well developed, well nourished, no acute distress, non-toxic appearance. [] HENT: Normocephalic, atraumatic, bilateral external ears normal, oropharynx moist, no oral exudates, nose normal. [] Eyes: PERRLA, EOMI, conjunctiva normal, no discharge. [] Neck: Normal range of motion, no tenderness, supple, no stridor. [] Cardiovascular:Heart rate sinus tachycardia Lungs & Thorax: Bilateral breath sounds clear to auscultation [] Abdomen: Bowel sounds normal, soft, no tenderness, no masses, no pulsatile masses. [] Skin: Warm, dry, no erythema, no rash. [] Back: No tenderness, no CVA tenderness. [] Extremities: No tenderness, no cyanosis, no clubbing, ROM intact, no edema. [] Neurologic: Alert and oriented X 3, normal motor function, normal sensory function, no focal deficits noted. [] Psychologic: Affect normal, judgement normal, mood normal. [] Current Patient Data: Labs: Laboratory Tests Test 07/06/20 14:53 07/06/20 15:05 Urine Collection Type Unknown Urine Color Yellow Urine Clarity Clear Urine pH 5.5 Urine Specific [place] 1.025 Urine Protein 30 mg/dl (NEG-TRACE) Urine Glucose (UA) Neg mg/dL (NEG) Urine Ketones (Stick) Neg mg/dL (NEG) Urine Blood Trace (NEG) Urine Nitrite Neg (NEG) Urine Bilirubin Neg (NEG) Urine Urobilinogen Dipstick 0.2 mg/dL (0.2 mg/dL) Urine Leukocyte Esterase Neg (NEG) Urine RBC 3-5 /HPF (0-2) Urine WBC 0 /HPF (0-4) Urine Squamous Epithelial Cells Few /LPF Urine Bacteria 0 /HPF (0-FEW) White Blood Count 4.0 x10^3/uL (4.0-11.0) Red Blood Count 4.48 x10^6/uL (3.50-5.40) Hemoglobin 13.6 g/dL (12.0-15.5) Hematocrit 39.5 % (36.0-47.0) Mean Corpuscular Volume 88 fL (79-100) Mean Corpuscular Hemoglobin 30 pg (25-35) Mean Corpuscular Hemoglobin Concent 34 g/dL (31-37) Red Cell Distribution Width 13.2 % (11.5-14.5) Platelet Count 293 x10^3/uL (140-400) Neutrophils (%) (Auto) 39 % (31-73) Lymphocytes (%) (Auto) 40 % (24-48) Monocytes (%) (Auto) 16 % (0-9) H Eosinophils (%) (Auto) 4 % (0-3) H Basophils (%) (Auto) 1 % (0-3) Neutrophils # (Auto) 1.5 x10^3uL (1.8-7.7) L Lymphocytes # (Auto) 1.6 x10^3/uL (1.0-4.8) Monocytes # (Auto) 0.6 x10^3/uL (0.0-1.1) Eosinophils # (Auto) 0.1 x10^3/uL (0.0-0.7) Basophils # (Auto) 0.1 x10^3/uL (0.0-0.2) Sodium Level 143 mmol/L (136-145) Potassium Level 2.9 mmol/L (3.5-5.1) *L Chloride Level 103 mmol/L (98-107) Carbon Dioxide Level 29 mmol/L (21-32) Anion Gap 11 (6-14) Blood Urea Nitrogen 18 mg/dL (7-20) Creatinine 0.7 mg/dL (0.6-1.0) Estimated GFR (Cockcroft-Gault) 106.3 BUN/Creatinine Ratio 26 (6-20) H Glucose Level 210 mg/dL (70-99) H Calcium Level 9.9 mg/dL (8.5-10.1) Total Bilirubin 0.7 mg/dL (0.2-1.0) Aspartate Amino Transferase (AST) 29 U/L (15-37) Alanine Aminotransferase (ALT) 62 U/L (14-59) H Alkaline Phosphatase 220 U/L (46-116) H Total Protein 8.4 g/dL (6.4-8.2) H Albumin 4.3 g/dL (3.4-5.0) Albumin/Globulin Ratio 1.0 (1.0-1.7) Vital Signs: Vital Signs Date Time Temp Pulse Resp B/P (MAP) Pulse Ox O2 Delivery O2 Flow Rate FiO2 07/06/20 14:40 98.2 115 18 127/89 (102) 100 Room Air EKG: EKG: [] Radiology/Procedures: Radiology/Procedures: [] CT ABDOMEN+PELVIS WO INDICATION: right flank pain, dysuria EXAM: Noncontrast CT of the abdomen and pelvis. Coronal and sagittal reformatted images were performed. PQRS compliance statement: One or more of the following individualized dose reduction techniques were utilized for this examination: 1. Automated exposure control 2. Adjustment of the mA and/or kV according to patient size 3. Use of iterative reconstruction technique COMPARISON: 11/11/2018 FINDINGS: No free air, free fluid, or fluid collection. Lower chest: The visualized lower lungs are aerated. No pleural or pericardial effusion. ABDOMEN: Liver: Stable right hepatic cyst. Noncontrast liver is otherwise homogeneous in attenuation. Gallbladder and biliary: Cholecystectomy. Normal caliber bile ducts. Spleen: Normal spleen. Pancreas: The noncontrast pancreas is homogeneous in attenuation without peripancreatic inflammatory changes. Adrenal glands: Normal adrenal glands. Kidneys and ureters: No opaque urinary calculi. Normal kidneys and ureters. GI tract: The stomach is decompressed and poorly evaluated. Normal caliber small bowel and colon. Appendectomy. Vascular structures: Normal caliber abdominal aorta. Lymph nodes: No lymphadenopathy in the abdomen or pelvis. PELVIS: Genitourinary system: Urinary bladder is underdistended and demonstrates circumferential wall thickening. Hysterectomy. SKELETAL STRUCTURES AND SOFT TISSUES: Degenerative changes of the spine. Posterior instrumentation at L3-4 with interbody spacer IMPRESSION: 1. No hydronephrosis or opaque urinary calculi. 2. Circumferential bladder wall thickening, which could relate to underdistention or potentially cystitis. 3. Cholecystectomy. Appendectomy. Hysterectomy. Heart Score: C/O Chest Pain: No Risk Factors: Risk Factors: DM, Current or recent (<one month) smoker, HTN, HLP, family history of CAD, obesity. Risk Scores: Score 0 - 3: 2.5% MACE over next 6 weeks - Discharge Home Score 4 - 6: 20.3% MACE over next 6 weeks - Admit for Clinical Observation Score 7 - 10: 72.7% MACE over next 6 weeks - Early Invasive Strategies Course & Med Decision Making: Course & Med Decision Making Pertinent Labs and Imaging studies reviewed. (See chart for details) [] 50-year-old female presents with urgency and frequency and right-sided flank pain. CT of abdomen pelvis ordered to rule out kidney stone. UA ordered to rule out infection. Patient given Toradol. Patient still reporting pain. Patient given morphine and Zofran for nausea. UA shows trace blood. Negative for leuks or nitrates. WBC 4.0, potassium was 2.9. Patient was given 40 mEq of potassium. Patient states "she has a history of hypokalemia". Alkaline phosphate was 210. Patient has history of sarcoidosis which is on her liver and spleen. CT of abdomen/pelvis is negative for obstruction/kidney stone. Patient most likely passed a stone last week when she was having urinary symptoms. Patient was still reporting pain. I gave a dose of morphine and Zofran prior to discharge. Instructed patient to follow-up with her PCP if she continues to have symptoms. Dragon Disclaimer: Dragon Disclaimer: This electronic medical record was generated, in whole or in part, using a voice recognition dictation system. Departure Departure: Impression: Primary Impression: Flank pain Additional Impression: Hypokalemia Disposition: 01 HOME / SELF CARE / HOMELESS Condition: STABLE Referrals: SOFIA HENDERSON (PCP) Patient Instructions: Flank Pain, Hypokalemia Additional Instructions: You were seen in the emergency room for flank pain and some urinary symptoms. Your urine was negative for infection but did show some blood. You most likely have passed a stone when you were having urinary symptoms. The CT of your abdomen and pelvis was negative for any kidney stones or obstructions at this time. Your potassium was 2.9 which is a little bit low. You were given potassium replacement. Please call your PCP and make a follow-up appointment for further management. You can take Motrin and Tylenol at home for discomfort. I am sending you home with a prescription for Zofran to help with nausea. If you have worsening symptoms or concerns please return to the emergency room. EMERGENCY DEPARTMENT GENERAL DISCHARGE INSTRUCTIONS Thank you for coming to [facility] (ED) today and trusting us with you care. We trust that you had a positivie experience in our Emergency Department. If you wish to speak to the department management, you may call the director at [phone]. YOUR FOLLOW UP INSTRUCTIONS ARE FOLLOWS: 1. Do you have a private Doctor? If you do not have a private doctor, please ask for a resource list of physicians or clinics that may be able to assist you with follow up care. 2. The Emergency Physician has interpreted your x-rays. The X-Ray specialist will also review them. If there is a change in the findings, you will be notified in 48 hours when at all possible. 3. A lab test or culture has been done, your results will be reviewed and you will be notified if you need a change in treatment. ADDITIONAL INSTRUCTIONS AND INFORMATION: 1. Your care today has been supervised by a physician who is specially trained in emergency care. Many problems require more than one evaluation for a complete diagnosis and treatment. We recommend that you schedule your follow up appointment as recommended to ensure complete treatment of you illness or injury. If you are unable to obtain follow up care and continue to have a problem, or if your condition worsens, we recommend that you return to the ED. 2. We are not able to safely determine your condition over the phone nor are we able to give sound medical advice over the phone. For these safety reasons, if you call for medical advice we will ask you to come to the ED for further evaluation. 3. If you have any questions regarding these discharge instructions please call the ED at [phone]. SAFETY INFORMATION: In the interest of safety, wellness, and injury prevention; we encourage you to wear your sealbelt, if you smoke; quite smoking, and we encourage family to use a protective helmet for bicycling and other sporting events that present an increased risk for head injury. IF YOUR SYMPTOMS WORSEN OR NEW SYMPTOMS DEVELOP, OR YOU HAVE CONCERNS ABOUT YOUR CONDITION; OR IF YOUR CONDITION WORSENS WHILE YOU ARE WAITING FOR YOUR FOLLOW UP APPOINTMENT; EITHER CONTACT YOUR PRIMARY CARE DOCTOR, THE PHYSICIAN WHOSE NAME AND NUMBER YOU WERE GIVEN, OR RETURN TO THE ED IMMEDIATELY. DAWOOD NARVAEZ APRN July 06, 2020 16:27
[2020-07-06 18:10] VITALS: BP 152/97
[2020-07-06] MEDS: POTASSIUM CHLORIDE 20 MEQ TABLET.ER. PO ONE (18:10)
== END 2020-07-06 18:17 | disposition home or self-care (01) ==
LOC: ER 14:28
DX: E87.6 Hypokalemia (principal); R10.31 Right lower quadrant pain; R39.15 Urgency of urination; R35.0 Frequency of micturition; E11.9 Type 2 diabetes mellitus without complications; I10 Essential (primary) hypertension; Z90.49 Acquired absence of other specified parts of digestive tract; Z90.89 Acquired absence of other organs; Z98.890 Other specified postprocedural states; Z90.710 Acquired absence of both cervix and uterus; Z90.722 Acquired absence of ovaries, bilateral; Z88.6 Allergy status to analgesic agent; Z88.8 Allergy status to other drugs, medicaments and biological substances
CPT/HCPCS: 36415; 74176; 80053; 81001; 83735; 85025; 96361; 96374; 96375; 96376; 99284; J1885; J2270; J2405; J7030

== ENCOUNTER 2020-11-10 13:43 | Emergency (ER) | payer MEDICARE, OTHER ==
[~2020-11-10] VITALS: Ht 167.6 cm; Wt 74.0 kg
[2020-11-10 14:23] VITALS: BP 133/89
--- NOTE | 2020-11-10 15:10 | PHYS DOC ---
Past History Past Medical History: Diabetes, Hypertension, Other Additional Past Medical Histor: sarcoidosis (SALLY CLEMENTS APRN) Past Surgical History: Appendectomy, Cholecystectomy, , Hysterectomy, Oophorectomy Additional Past Surgical Histo: back surgery (SALLY CLEMENTS APRN) Smoking: Non-smoker Alcohol Use: None Drug Use: None (SALLY CLEMENTS APRN) General Adult EDM: Chief Complaint: MECHANICAL FALL HPI: HPI: Patient is a 50-year-old female who presents to the ER for multiple pain complaints following a fall that occurred yesterday. Patient reports that she fell from standing after tripping over a tire and fell onto the tire. Patient states that she took hydromorphone and Tylenol at 8:00 this morning. Patient is reporting pain to her left knee, right lower leg, low back and lower abdomen. Patient denies hitting head, loss of consciousness, blood thinner use, loss of bowel or bladder, saddle anesthesias. Patient states that she has been able to bear weight and ambulate since. Patient has a history of chronic low back pain. (SALLY CLEMENTS APRN) Review of Systems: Review of Systems: 14 body systems of the review of systems have been reviewed. See HPI for pertinent positive and negative responses, otherwise all other systems are negative, nonpertinent or noncontributory (SALLY CLEMENTS APRN) Allergies: Allergies: Allergies Coded Allergies Type Severity Reaction Last Updated Verified spironolactone Allergy Intermediate Hives 07/06/20 Yes tramadol Allergy Intermediate Hives 07/06/20 Yes (SALLY CLEMENTS APRN) Physical Exam: PE: Constitutional: Well developed, well nourished, no acute distress, non-toxic appearance. [] HENT: Normocephalic, atraumatic, bilateral external ears normal, oropharynx moist, no oral exudates, nose normal. [] Eyes: PERRLA, EOMI, conjunctiva normal, no discharge. [] Neck: Normal range of motion, no bony spinal tenderness, supple, no stridor. [] Cardiovascular:Heart rate regular rhythm, no murmur [] Lungs & Thorax: Bilateral breath sounds clear to auscultation [] Abdomen: Bowel sounds normal, soft, mild lower abdominal tenderness with palpation, no masses, no pulsatile masses. [] Skin: Warm, dry, no erythema, no rash. [] Back: No bony spinal tenderness, normal range of motion, right-sided lumbar paraspinal tenderness with palpation Extremities: No tenderness, no cyanosis, no clubbing, ROM intact, no edema. Left knee: Mild swelling noted to anterior aspect of left knee, no obvious deformities, neuro intact, patient reports decreased flexion of knee due to pain. Right lower extremity: Ecchymosis noted to anterior aspect of right lower extremity, no obvious deformity, neuro intact, range of motion intact Neurologic: Alert and oriented X 3, normal motor function, normal sensory fun ction, no focal deficits noted. [] Psychologic: Affect normal, judgement normal, mood normal. [] (SALLY CLEMENTS APRN) Current Patient Data: Vital Signs: Vital Signs Date Time Temp Pulse Resp B/P (MAP) Pulse Ox O2 Delivery O2 Flow Rate FiO2 11/10/20 14:23 97.6 103 14 133/89 (104) 99 Room Air (SALLY CLEMENTS APRN) EKG: EKG: [] (SALLY CLEMENTS APRN) Radiology/Procedures: Radiology/Procedures: []PROCEDURE: CT LUMBAR SPINE WO CONTRAST EXAM: Abdomen and pelvis CT without intravenous contrast; lumbar spine CT without contrast. HISTORY: Fall. Pain. TECHNIQUE: Computed tomographic images of the abdomen and pelvis and lumbar spine were obtained without contrast. Multiplanar reformatting was performed. *One or more of the following individualized dose reduction techniques were utilized for this examination: 1. Automated exposure control. 2. Adjustment of the mA and/or kV according to patient size. 3. Use of iterative reconstruction technique. COMPARISON: 07/06/2020. FINDINGS: Evaluation of the lower thorax demonstrates linear atelectasis or scarring at the left lung base. There is no infiltrate or pleural effusion. There is a 1.7 cm cyst within the right hepatic lobe. There is no suspicious h epatic lesion. The gallbladder is surgically absent. The pancreas, spleen, adrenal glands and kidneys are unremarkable. The appendix is surgically absent. There is moderate colonic stool. There is bladder wall thickening likely due to relative under distention. The uterus is absent. No adnexal lesion is seen. The aorta is normal in caliber. There is no lymphadenopathy. There is instrumented posterior spinal fusion and disc space fusion device placement at L3-L4. There is no evidence of instrumentation loosening or instrumentation fracture. There is slight reversal of lumbar lordosis. There is minimal retrolisthesis of L4 on L5 and L5 on S1. There is mild multilevel endplate remodeling. There are few small endplate Schmorl's nodes. There is no suspicious osseous lesion. There are hypoplastic T12 ribs, a normal variant. At L1-L2, there is no stenosis. At L2-L3, there is a disc bulge and endplate remodeling. There is no stenosis. At L3-L4, there is instrumented fusion. There are right hemilaminectomy changes. There is no stenosis. At L4-L5, there is a broad-based left paracentral to foraminal disc protrusion superimposed on a disc bulge and endplate remodeling. There is mild left greater than right foraminal stenosis. There is mild central canal stenosis. At L5-S1, there is a disc bulge and endplate remodeling. There is no stenosis. IMPRESSION: 1. No acute abdominal or pelvic finding and no acute finding involving the lumbar spine. 2. Instrumented fusion at L3-L4. 3. Degenerative change involving the lumbar spine, described in detail above. This is associated with mild left greater than right foraminal and central canal stenosis at L4-L5. 4. Simple hepatic cyst. 5. Moderate colonic stool. Correlate for constipation. Electronically signed by: Kasandra Echevarria MD (11/10/2020 4:48 PM) [id number] PROCEDURE: KNEE LEFT 4V XR KNEE _4 VIEWS WITH PATELLA_LT History: Reason: fall / Spl. Instructions: / History: . Pain Technique: 4 views left knee. Comparison: None. Findings: Normal alignment. No acute fracture. Mild patellar spurring. No significant knee joint effusion. Minimal anterior knee soft tissue swelling. Impression: 1. No acute osseous abnormality. Electronically signed by: Tavon Rojas DO (11/10/2020 4:48 PM) [facility] DICTATED AND SIGNED BY: TAVON ROJAS DO DATE: 11/10/201646 CC: SOFIA HENDERSON; SALLY CLEMENTS [employer] TEACHER ASSISTANT ~MTH0 0 PROCEDURE: TIBIA FIBULA RIGHT XR RT TIBIA+FIBULA History: Reason: fall / Spl. Instructions: / History: . Pain Technique: 2 views right tibia and fibula Comparison: None. Findings: Normal alignment. No acute fracture. Impression: 1. No acute osseous abnormality. Electronically signed by: Tavon Rojas DO (11/10/2020 4:49 PM) [facility] DICTATED AND SIGNED BY: TAVON ROJAS DO DATE: 11/10/201647 CC: SOFIA HENDERSON; SALLY CLEMENTS APRN ~MTH0 0 (SALLY CLEMENTS APRN) Heart Score: C/O Chest Pain: N/A Risk Factors: Risk Factors: DM, Current or recent (<one month) smoker, HTN, HLP, family history of CAD, obesity. Risk Scores: Score 0 - 3: 2.5% MACE over next 6 weeks - Discharge Home Score 4 - 6: 20.3% MACE over next 6 weeks - Admit for Clinical Observation Score 7 - 10: 72.7% MACE over next 6 weeks - Early Invasive Strategies (SALLY CLEMENTS APRN) Course & Med Decision Making: Course & Med Decision Making Pertinent Labs and Imaging studies reviewed. (See chart for details) Patient is a 50-year-old female who presents to the ER following a fall. Patient is reporting low back, lower abdominal, left knee and right lower leg pain. Imaging was performed and they were negative for any acute findings. Patient requested pain medication and was given nausea and pain medication in the ER. Her Ct abd/pelvis did show mild constipation, pt advised to use miralax. Patient states that she is hydromorphone and Tylenol at home, she is advised to continue take those medications for her pain. She was also advised to follow-up with her primary care provider. I discussed with patient all findings and diagnostic testing as well as the need to follow-up with PCP for further evaluation and treatment or return to the ER if any new or worsening symptoms. Strict return precautions were also discussed at length. Patient voiced understanding and agreement with the plan. Patient is hemodynamically stable at the time of disposition. (SALLY CLEMENTS APRN) Dragon Disclaimer: Dragon Disclaimer: This electronic medical record was generated, in whole or in part, using a voice recognition dictation system. (SALLY CLEMENTS APRN) Departure Departure: Impression: Primary Impression: Fall Qualified Codes: W19.XXXA - Unspecified fall, initial encounter Disposition: HOME / SELF CARE / HOMELESS Condition: GOOD Referrals: SOFIA HENDERSON (PCP) Patient Instructions: Contusion, Fall Prevention and Home Safety Additional Instructions: You were seen in the ER today following a fall. Images were performed and they were negative for any acute findings. The CT scan of your abdomen did show mild constipation, you may benefit from taking MiraLAX daily. You can continue taking your hydromorphone and Tylenol at home. Follow-up with your primary care provider tomorrow regarding your ER visit. You can also apply ice as this may help with pain and swelling. Please return to the ER if you develop worsening of your pain, loss of bowel or bladder, confusion, numbness or tingling in your groin or down your extremities, inability to bear weight or ambulate. EMERGENCY DEPARTMENT GENERAL DISCHARGE INSTRUCTIONS Thank you for coming to [facility] (ED) today and trusting us with you care. We trust that you had a positivie experience in our Emergency Department. If you wish to speak to the department management, you may call the director at [phone]. YOUR FOLLOW UP INSTRUCTIONS ARE FOLLOWS: 1. Do you have a private Doctor? If you do not have a private doctor, please ask for a resource list of physicians or clinics that may be able to assist you with follow up care. 2. The Emergency Physician has interpreted your x-rays. The X-Ray specialist will also review them. If there is a change in the findings, you will be notified in 48 hours when at all possible. 3. A lab test or culture has been done, your results will be reviewed and you will be notified if you need a change in treatment. ADDITIONAL INSTRUCTIONS AND INFORMATION: 1. Your care today has been supervised by a physician who is specially trained in emergency care. Many problems require more than one evaluation for a complete diagnosis and treatment. We recommend that you schedule your follow up appointment as recommended to ensure complete treatment of you illness or injury. If you are unable to obtain follow up care and continue to have a problem, or if your condition worsens, we recommend that you return to the ED. 2. We are not able to safely determine your condition over the phone nor are we able to give sound medical advice over the phone. For these safety reasons, if you call for medical advice we will ask you to come to the ED for further evaluation. 3. If you have any questions regarding these discharge instructions please call the ED at [phone]. SAFETY INFORMATION: In the interest of safety, wellness, and injury prevention; we encourage you to wear your sealbelt, if you smoke; quite smoking, and we encourage family to use a protective helmet for bicycling and other sporting events that present an increased risk for head injury. IF YOUR SYMPTOMS WORSEN OR NEW SYMPTOMS DEVELOP, OR YOU HAVE CONCERNS ABOUT YOUR CONDITION; OR IF YOUR CONDITION WORSENS WHILE YOU ARE WAITING FOR YOUR FOLLOW UP APPOIN TMENT; EITHER CONTACT YOUR PRIMARY CARE DOCTOR, THE PHYSICIAN WHOSE NAME AND NUMBER YOU WERE GIVEN, OR RETURN TO THE ED IMMEDIATELY. Attending Signature Attending Signature I have reviewed the PA/JUVENILE JUSTICE SPECIALIST's note and plan of care. I was available for consultation as needed during the patient's visit in the emergency department. I agree with the clinical impression, plan, and disposition. (SHAY GERMAN DO) SALLY CLEMENTS APRN Nov 10, 2020 15:10 SHAY GERMAN DO Nov 10, 2020 17:57
[2020-11-10] MEDS ORDERED: HYDROcodone/APAP 5/325MG 1 TAB TABLET PO ONE (16:00)
[2020-11-10] MEDS ORDERED: ONDANSETRON ODT 4 MG TAB.RAPDIS PO ONE (16:00)
--- NOTE | 2020-11-10 16:50 | RAD ---
XR KNEE _4 VIEWS WITH PATELLA_LT History: Reason: fall / Spl. Instructions: / History: . Pain Technique: 4 views left knee. Comparison: None. Findings: Normal alignment. No acute fracture. Mild patellar spurring. No significant knee joint effusion. Mini mal anterior knee soft tissue swelling. Impression: 1. No acute osseous abnormality. Electronically signed by: Tavon Waggoner DO (11/10/2020 4:48 PM) [facility]
--- NOTE | 2020-11-10 16:51 | RAD ---
EXAM: Abdomen and pelvis CT without intravenous contrast; lumbar spine CT without contrast. HISTORY: Fall. Pain. TECHNIQUE: Computed tomographic images of the abdomen and pelvis and lumbar spine were obtained witho ut contrast. Multiplanar reformatting was performed. *One or more of the following individualized dose reduction techniques were utilized for this examina tion: 1. Automated exposure control. 2. Adjustment of the mA and/or kV according to patient size. 3. Use of iterative reconstruction technique. COMPARISON: 07/06/2020. FINDINGS: Evaluation of the lower thorax demonstrates linear atelectasis or scarring at the left lung base. There is no infiltrate or pleural effusion. There is a 1.7 cm cyst within the right hepatic lo be. There is no suspicious hepatic lesion. The gallbladder is surgically absent. The pancreas, spleen , adrenal glands and kidneys are unremarkable. The appendix is surgically absent. There is moderate colonic stool. There is bladder wall thickening likely due to relative under distention. The uterus is absent. No adnexal lesion is seen. The aorta i s normal in caliber. There is no lymphadenopathy. There is instrumented posterior spinal fusion and disc space fusion device placement at L3-L4. There is no evidence of instrumentation loosening or instrumentation fracture. There is slight reversal of lumbar lordosis. There is minimal retrolisthesis of L4 on L5 and L5 on S1. There is mild multilevel e ndplate remodeling. There are few small endplate Schmorl's nodes. There is no suspicious osseous lesi on. There are hypoplastic T12 ribs, a normal variant. At L1-L2, there is no stenosis. At L2-L3, there is a disc bulge and endplate remodeling. There is no stenosis. At L3-L4, there is instrumented fusion. There are right hemilaminectomy changes. There is no stenosis . At L4-L5, there is a broad-based left paracentral to foraminal disc protrusion superimposed on a disc bulge and endplate remodeling. There is mild left greater than right foraminal stenosis. There is mi ld central canal stenosis. At L5-S1, there is a disc bulge and endplate remodeling. There is no stenosis. IMPRESSION: 1. No acute abdominal or pelvic finding and no acute finding involving the lumbar spine. 2. Instrumented fusion at L3-L4. 3. Degenerative change involving the lumbar spine, described in detail above. This is associated with mild left greater than right foraminal and central canal stenosis at L4-L5. 4. Simple hepatic cyst. 5. Moderate colonic stool. Correlate for constipation. Electronically signed by: Kasandra Echevarria MD (11/10/2020 4:48 PM) [id number]
--- NOTE | 2020-11-10 16:52 | RAD ---
XR RT TIBIA+FIBULA History: Reason: fall / Spl. Instructions: / History: . Pain Technique: 2 views right tibia and fibula Comparison: None. Findings: Normal alignment. No acute fracture. Impression: 1. No acute osseous abnormality. Electronically signed by: Tavon Waggoner DO (11/10/2020 4:49 PM) [facility]
== END 2020-11-10 17:32 | disposition home or self-care (01) ==
LOC: ER 13:43
DX: S80.11XA Contusion of right lower leg, initial encounter (principal); M54.59 Other low back pain; R10.30 Lower abdominal pain, unspecified; M25.562 Pain in left knee; E11.9 Type 2 diabetes mellitus without complications; I10 Essential (primary) hypertension; G89.29 Other chronic pain; Z90.89 Acquired absence of other organs; Z90.49 Acquired absence of other specified parts of digestive tract; Z98.890 Other specified postprocedural states; Z90.710 Acquired absence of both cervix and uterus; Z88.8 Allergy status to other drugs, medicaments and biological substances; W18.09XA Striking against other object with subsequent fall, initial encounter; Y93.89 Activity, other specified; Y92.89 Other specified places as the place of occurrence of the external cause; Y99.8 Other external cause status
CPT/HCPCS: 72131; 73564; 73590; 74176; 99285; Q0162